=== PATIENT | female | born 1970 | race Caucasian/White ===

== ENCOUNTER → 2020-11-17 09:26 | Outpatient (REF) | payer MEDICARE, MEDICAID, SELFPAY ==
--- NOTE | 2020-11-17 | NM_ITS ---
Lexiscan Myocardial perfusion study Indication: Chest pain, assess for coronary disease and ischemia Technique: The patient was brought in for a Lexiscan perfusion study on 11/17/2020 and was injected 0.4 mg of Lexiscan intravenously. Within a minute of this injection 25 mCi of sestamibi was given intravenously. Images were obtained using the SPECT gamma camera interlaced with the gating device. Images were obtained in supine position. Resting perfusion study was performed on 11/18/2020. Patient was administered 25 mCi of sestamibi intravenously at rest. Images were then obtained in supine position. Total DLP 76mGy-cm. Images were processed with the software and compared side to side in short axis, horizontal long axis and vertical long axis views. Findings: Raw acquisition was reviewed. The stress perfusion study showed no significant perfusion abnormality. Both uncorrected as well as CT attenuation corrected images were reviewed. The gated study shows normal LV systolic function with calculated LVEF of 65%. LV cavity is normal in size. The gated study shows normal wall thickening and contraction of segments. Resting study shows no significant perfusion abnormality. Gating at rest reveals normal wall motion with ejection fraction at 76%. The findings are consistent with no reversible or fixed perfusion abnormality. NM/NM anthony perf SPECT rest & str Impression: 1. Myocardial perfusion imaging study shows normal myocardial perfusion. No evidence of any ischemia or infarction. 2. Gated LVEF is 65% during stress and 76% during rest. 3. Transient ischemic dilatation not present. EKG component of the test reported separately.
--- NOTE | 2020-11-17 09:30 | CA_ITS ---
Acquisition Time: 2020-11-17 09:52:55 Total Exercise Time: 00:02:00 Test Indications: Chest Pain Medications: SEE CHART Protocol: LEXISCAN Max HR: 134 BPM 79% of Pred: 168 BPM Max BP: 124/070 mmHG Max Work Load: 1.6 METS Pharmacological stress test with Lexiscan injection, while walking on treadmill, without anginal symptoms, with isolated PVCs, with normotensive response to injection, with nondiagnostic EKG for ischemia. In recovery she reported feeling anxious inside and was treated with Aminophylline 75mg IVP to reverese Lexiscan, with resolution of symptom. Nuclear images pending. Test reviewed with Dr Anton. Referred By: Mayco Gallardo Overread By: YURI REGALADO
== END ==
LOC: HO.CARD 09:26
PROVIDERS: PCP Family Medicine; Visit Provider Internal Medicine Cardiovascular Disease
DX: R07.9 Chest pain, unspecified (principal)
CPT/HCPCS: 78452; 93017; A9500; J0280; J2785